=== PATIENT | female | born 1950 | race Caucasian/White ===

== ENCOUNTER → 2016-06-22 | Outpatient (CLI) | payer OTHER ==
--- NOTE | 2016-06-23 12:39 | MAMMOGRAPHY REPORT ---
BILATERAL DIGITAL SCREENING MAMMOGRAM WITH CAD: 06/22/2016 CLINICAL HISTORY: Routine screening. Patient has no complaints. TECHNIQUE: Bilateral CC and MLO views were obtained. Current study was also evaluated with a Comput er Aided Detection (CAD) system. COMPARISON: Comparison is made to exams dated: 06/19/2015 mammogram, 12/14/2013 mammogram, 12/13/2012 jacqueline mogram, 10/09/2010 mammogram, and 10/08/2009 mammogram - [facility]. BREAST COMPOSITION: There are scattered areas of fibroglandular density in both breasts. FINDINGS: There is a new 3.9 mm nodular asymmetry in the posterior right breast, along the posterio r nipple line on the CC view, which is not clearly identified on the MLO view. Additional spot comp ression tomosynthesis views and possibly ultrasound are recommended for further characterization. There are stable benign-appearing coarse calcifications within the right breast. Several circular d ense bone markers overlie the breasts. No other suspicious mass, architectural distortion or cluster of suspicious microcalcifications is seen. IMPRESSION: ACR BI-RADS CATEGORY 0: INCOMPLETE EVALUATION: NEED ADDITIONAL IMAGING EVALUATION The new 3.9 mm nodular asymmetry in the right breast needs additional evaluation. The patient will be called to schedule an appointment. Approximately 10% of breast cancers are not detected with mammography. A negative mammographic repor t should not delay biopsy if a clinically suggestive mass is present. Basilia Stevens M.D. ay/:06/22/2016 14:57:47 Cellophane Tester: Vanessa Rowe, [facility] letter sent: Addl Imaging 0 BI-RADS Code: ACR BI-RADS Category 0: Incomplete Evaluation: Need Additional Imaging Evaluation
== END | disposition home or self-care (01) ==
LOC: C.MAMM 14:10
PROVIDERS: ATTEND Nurse Practitioner Obstetrics & Gynecology
DX: Z12.31 Encounter for screening mammogram for malignant neoplasm of breast (principal); R92.8 Other abnormal and inconclusive findings on diagnostic imaging of breast

== ENCOUNTER → 2016-07-06 | Outpatient (CLI) | payer OTHER ==
--- NOTE | 2016-07-06 16:46 | MAMMOGRAPHY REPORT ---
UNILATERAL RIGHT DIGITAL DIAGNOSTIC MAMMOGRAM TOMOSYNTHESIS AND TARGETED RIGHT ULTRASOUND: 07/06/2016 CLINICAL HISTORY: 65-year-old woman called back from screening mammography for a newly visualized 3. 9 mm mass in the posterior right breast, along the posterior nipple line on the CC view. TECHNIQUE: Spot compression right CC and MLO tomosynthesis images and reconstructed C-view were obta ined. COMPARISON: Comparison is made to exams dated: 06/22/2016 mammogram, 06/19/2015 mammogram, 12/14/2013 jacqueline mogram, 12/13/2012 mammogram, 10/09/2010 mammogram, and 10/08/2009 mammogram - [facility]. BREAST COMPOSITION: There are scattered areas of fibroglandular density in the right breast. FINDINGS: The spot compression CC view of the right breast demonstrates persistence of a lobulated 3.4 mm mass in the far posterior breast, along the posterior nipple line. No corresponding abnormal ity is clearly identified on the spot compression MLO tomosynthesis images. There is no associated architectural distortion or clustered microcalcification. Further evaluation with ultrasound was pe rformed. Real-time high-resolution sonographic evaluation was performed in the 12:00, retroareolar, 6:00 and slightly lateral right breast. In the 7:00 axis, 2 cm from the nipple, there is a multilobulated mi xed echogenicity but predominantly hypoechoic and anechoic mass that measures approximately 2.8 x 2. 1 x 4.0 mm. This is thought to correlate with the newly visualized mammographic mass and definitive characterization with tissue sampling is recommended. IMPRESSION: ACR BI-RADS CATEGORY 4B: INTERMEDIATE SUSPICION FOR MALIGNANCY, TARGETED ULTRASOUND ACR BI-RADS CATEGORY 4B: INTERMEDIATE SUSPICION FOR MALIGNANCY The newly visualized 3.4 mm mammographic mass in the posterior right breast, along the posterior nip ple line on the CC view is thought to correlate with a mixed hypoechoic and anechoic predominantly c ystic appearing mass seen in the 7:00 axis on ultrasound. Definitive characterization with ultrasou nd guided core needle biopsy is recommended. Correlation with post procedure mammograms is recommen ded to include mammographicsonographic correlation of the mass visualized on the right CC view. These results and recommendations were discussed with the patient at the time of the exam. She tent atively scheduled the biopsy prior to leaving our department. Approximately 10% of breast cancers are not detected with mammography. A negative mammographic repor t should not delay biopsy if a clinically suggestive mass is present. Basilia Stevens M.D. ay/:07/06/2016 14:56:02 [employer]: Vanessa MACHADO(R)(Kitty), [facility] letter sent: Abnormal 4/5 BI-RADS Code: ACR BI-RADS Category 4B: Intermediate Suspicion For Malignancy Ultrasound BI-RADS: AC R BI-RADS Category 4B: Intermediate Suspicion For Malignancy
== END | disposition home or self-care (01) ==
LOC: C.MAMM 13:39
PROVIDERS: ATTEND Nurse Practitioner Obstetrics & Gynecology
DX: N63 Unspecified lump in breast (principal)

== ENCOUNTER → 2016-07-16 | Outpatient (CLI) | payer OTHER ==
--- NOTE | 2016-07-16 11:55 | Discharge Instructions ---
Discharge Instructions Procedure Procedure Date: Jul 16, 2016. Reason for visit: Right Mass. Discharge Discharge Date: Jul 16, 2016. Discharge Diagnosis: status post attempted biopsy breast Instructions Activity Recommendations: Additional Limitations (see below) Return to School/Work: no limitations Recommended Home Diet: No Limitations Provider Instructions: ACTIVITY RECOMMENDATIONS: * No lifting, pushing, pulling or exercising the affected side for three days. RETURN TO SCHOOL/WORK: * You may return to work/school after the procedure, but do not perform any strenuous activities for 24 to 48 hours. MEDICATIONS: * Tylenol (two 325 mg) every four to six hours if needed for mild pain (if not allergic to Tylenol). DIET: * Resume previous diet. SPECIAL CARE INSTRUCTIONS: * Keep biopsy site dry for 24 hours. May shower after 24 hours, but do not soak (bathe) incision. * May remove Tegaderm (plastic patch) tomorrow AFTER showering. * Leave the steri-strips on for one week. Allow the steri-strips to fall off by themselves. If not off after one week, you may remove them. You may place a Bandaid crosswise over the strips, if desired. * Apply ice 10 minutes on and 10 minutes off as needed. * Wear a bra at bedtime to sleep more comfortably for 2-3 days. * Your referring physician should have the results after approximately 5 to 7 business days. * Call for unusual bleeding, fever, drainage, etc or if you have any questions call during normal business hours or after hours call Dr Traore, [phone]. FOLLOW UP VISIT: Follow-up with Referring Physician as scheduled. [facility] [place] Recommendations: Call your doctor if: * Temperature above 101 degrees * Pain not relieved by pain medicine ordered * There is increased drainage or redness from any incision * You have any unanswered questions or concerns. Your Doctors Instructions noted above were prepared by provider Teri Traore. Patient Signature Section: Patient Instructions Signature Page Lubna Ferrer Patient (or Guardian) Signature/Date: I have read and understand the instructions given to me by my caregivers. Caregiver/RN/Doctor Signature/Date: The above-named patient and/or guardian has received patient instructions on this date. + Original Patient Signature Page (only) stays with chart. Please make copy for patient.
--- NOTE | 2016-07-16 13:30 | MAMMOGRAPHY REPORT ---
UNILATERAL RIGHT DIGITAL DIAGNOSTIC MAMMOGRAM AND TARGETED RIGHT ULTRASOUND: 07/16/2016 CLINICAL HISTORY: Right 7:00 breast mass, for which ultrasound guided biopsy was recommended. TECHNIQUE: Right CC and ML views were obtained. COMPARISON: Comparison is made to exams dated: 07/06/2016 mammogram, 06/22/2016 mammogram, 06/19/2015 ma mmogram, 12/14/2013 mammogram, and 12/13/2012 mammogram - [facility]. BREAST COMPOSITION: There are scattered areas of fibroglandular density in the right breast. FINDINGS: Targeted ultrasound showed persistence of the nearly anechoic mass in the right breast at 7:00, 2 cm from the nipple, so the decision was made to proceed to ultrasound-guided biopsy. Betad ine was used to clean the skin. 1% lidocaine was used to anesthetize the skin and 1% lidocaine with epinephrine was used to anesthetize the deeper tissues. After the administration of lidocaine and after a skin liudmila was made, the mass was no longer clearly evident on ultrasound. As the mass appea red cystic on ultrasound, it is thought that the lidocaine needle likely traversed the mass and luana apsed it. As the mass was no longer clearly evident, biopsy was not performed. Repeat right CC and ML views were obtained. Multiple moles were marked with circular mole markers. The previously seen small 4 mm mass on the right cc view is not clearly evident, however, the regio n is somewhat obscured due to density created by the lidocaine. Recommend follow-up diagnostic mamm ograms and repeat ultrasound of the right breast in 6 months to reevaluate the mammographic and sono graphic masses. As a skin liudmila was made, wound care instructions were given to the patient and were also discussed v erbally. IMPRESSION: ACR-BI-RADS CATEGORY 3: PROBABLY BENIGN, TARGETED ULTRASOUND ACR-BI-RADS CATEGORY 3: [place] OBABLY BENIGN The right 7:00 breast mass was no longer evident on ultrasound after administering the local anesthe tic. As the mass appeared cystic on ultrasound, it is thought that the lidocaine needle likely doc ersed the mass and collapsed it. Therefore, biopsy was not performed. The mammographic mass is no longer clearly evident on repeat mammograms, although the area is somewhat obscured due to changes f rom the local anesthetic. Recommend follow-up diagnostic mammograms and ultrasound of the right beverley ast in 6 months to reevaluate both the mammographic and sonographic masses. The patient has been verbally notified of the results. Approximately 10% of breast cancers are not detected with mammography. A negative mammographic repor t should not delay biopsy if a clinically suggestive mass is present. Teri Traore M.D. ah/:07/16/2016 12:40:04 Booking Manager: Melvi RAO)(Kitty), [facility] letter sent: Follow Up Recommended 3 BI-RADS Code: ACR-BI-RADS Category 3: Probably Benign Ultrasound BI-RADS: ACR-BI-RADS Category 3: P robably Benign
== END | disposition home or self-care (01) ==
LOC: C.MAMM 10:40
PROVIDERS: ATTEND Nurse Practitioner Obstetrics & Gynecology
DX: R92.8 Other abnormal and inconclusive findings on diagnostic imaging of breast (principal)

== ENCOUNTER → 2017-02-04 | Outpatient (CLI) | payer OTHER ==
--- NOTE | 2017-02-04 16:10 | MAMMOGRAPHY REPORT ---
UNILATERAL RIGHT DIGITAL DIAGNOSTIC MAMMOGRAM TOMOSYNTHESIS WITH CAD AND TARGETED RIGHT ULTRASOUND: CLINICAL HISTORY: The patient presents for short interval follow-up of a right breast mass at 7:00. A biopsy was recommended of the mass, however, at the time of the biopsy the mass was no longer seen after administering local anesthetic, therefore biopsy was not performed. It was felt that the mass represented a cyst which collapsed when the lidocaine needle traversed it. TECHNIQUE: Breast tomosynthesis in addition to standard 2D mammography was performed. Current study was also evaluated with a Computer Aided Detection (CAD) system. Right CC and MLO 2-D and tomosynthe sis images were obtained. COMPARISON: Comparison is made to exams dated: 07/16/2016 mammogram, 07/06/2016 mammogram, 07/06/2016 ul trasound, 06/22/2016 mammogram, 12/14/2013 mammogram, and 06/19/2015 mammogram - [facility]. BREAST COMPOSITION: There are scattered areas of fibroglandular density in the right breast. FINDINGS: The previously seen nodular asymmetry within the right posterior breast on the cc view is n o longer evident. The remainder of the right breast is stable compared to prior exams, without suspi cious masses, calcifications, or areas of architectural distortion noted. Circular markers jessenia mult iple moles. Targeted ultrasound was performed of the area of the previously seen mass in the right breast at 7:00 , 2 cm from the nipple. Ultrasound of this region demonstrates no suspicious masses or other suspici ous sonographic abnormalities. The previously seen mass is not clearly visualized. Given the resolu tion of findings on ultrasound and mammograms, findings are benign. IMPRESSION: ACR BI-RADS CATEGORY 2: BENIGN, TARGETED ULTRASOUND ACR BI-RADS CATEGORY 2: BENIGN The previously seen mammographic mass within the right posterior breast is no longer evident mammogra phically and sonographically, therefore findings are benign. There is no mammographic or targeted so nographic evidence of malignancy. Return to annual mammogram screening schedule is recommended, due J anuary 2018. The patient has been verbally notified of the results. Approximately 10% of breast cancers are not detected with mammography. A negative mammographic report should not delay biopsy if a clinically suggestive mass is present. Teri Traore M.D. /:02/04/2017 14:35:09 Back Hand: Megan RAO)(Kitty), [facility] letter sent: Normal 1/2 BI-RADS Code: ACR BI-RADS Category 2: Benign Ultrasound BI-RADS: ACR BI-RADS Category 2: Benign
== END | disposition home or self-care (01) ==
LOC: C.MAMM 14:02
PROVIDERS: ATTEND Nurse Practitioner Obstetrics & Gynecology
DX: R92.2 Inconclusive mammogram (principal)

== ENCOUNTER → 2017-08-11 | Outpatient (CLI) | payer OTHER ==
--- NOTE | 2017-08-12 15:17 | MAMMOGRAPHY REPORT ---
BILATERAL DIGITAL SCREENING MAMMOGRAM TOMOSYNTHESIS WITH CAD: 08/11/2017 CLINICAL HISTORY: Routine screening. Patient has no complaints. TECHNIQUE: Breast tomosynthesis in addition to standard 2D mammography was performed. Current study was also evaluated with a Computer Aided Detection (CAD) system. COMPARISON: Comparison is made to exams dated: 02/04/2017 mammogram, 07/16/2016 mammogram, 07/06/2016 ma mmogram, 06/22/2016 mammogram, 06/19/2015 mammogram, and 12/14/2013 mammogram - [facility] BREAST COMPOSITION: There are scattered areas of fibroglandular density in both breasts. FINDINGS: A 3 mm nodular asymmetry in the posterior right breast along the posterior nipple line on t he CC view is stable in size comparing to the 06/22/2016 mammograms. There are a few scattered benig n-appearing microcalcifications. No new suspicious mass, architectural distortion or cluster of micr ocalcifications is seen. IMPRESSION: ACR BI-RADS CATEGORY 1: NEGATIVE There is no mammographic evidence of malignancy. A 1 year screening mammogram is recommended. The pa tient will receive written notification of the results. Approximately 10% of breast cancers are not detected with mammography. A negative mammographic report should not delay biopsy if a clinically suggestive mass is present. Basilia Stevens M.D. ay/:08/11/2017 15:42:13 Special Trackwork Blacksmith: Vanessa RAO)(Kitty), [facility] letter sent: Normal 1/2 BI-RADS Code: ACR BI-RADS Category 1: Negative
== END | disposition home or self-care (01) ==
LOC: C.MAMM 14:57
PROVIDERS: ATTEND Family Medicine
DX: Z12.31 Encounter for screening mammogram for malignant neoplasm of breast (principal)